=== PATIENT | female | born 1940 | race Caucasian/White ===

== ENCOUNTER 2020-03-07 17:32 | Inpatient (IN) ==
[2020-03-07] MEDS ORDERED: Naloxone 0.4 MG/ML INJ IVP PRN (22:03)
[2020-03-07] MEDS ORDERED: 0.9 % Sodium Chloride 1,000 ML IVC ONE (22:54)
[2020-03-08] MEDS: *HR* Heparin 5,000 UNIT/ML VIAL SQ SCH ×2 (05:19→18:17)
[2020-03-08 06:18] LABS: Hematocrit 34.8 % (35.3-44.9); Hemoglobin 10.7 g/dL (11.5-15.4); Mean Corpuscular HGB Conc 30.7 g/dL (31.6-35.5); Mean Corpuscular Hemoglobin 29.5 pg (28.0-33.3); Mean Corpuscular Volume 95.9 fL (83.0-100.0); Mean Platelet Volume 9.8 fL (9.4-12.4); Platelet Count 262 K/mcL (140-400); Red Blood Count 3.63 M/mcL (3.82-4.97); Red Cell Distribution Width 14.3 % (11.5-14.5); White Blood Count 6.6 K/mcL (4.3-11.1)
[2020-03-08 06:42] LABS: BUN/Creatinine Ratio 19 (6-26); Blood Urea Nitrogen 20 mg/dL (8-23); Calcium 8.9 mg/dL (8.6-10.3); Carbon Dioxide 27 mEq/L (23-29); Chloride 107 mEq/L (98-107); Glucose 105 mg/dL (70-105); Osmolality,Calculated 295 (280-300); Potassium 3.6 mEq/L (3.5-5.1); Sodium 141 mEq/L (136-145); eGFR For African Americans > 60 (> 60); eGFR For Non-African Americans 50 (> 60)
[2020-03-08] MEDS: Loratadine 10 MG TABLET PO SCH (10:00)
[2020-03-08] MEDS: Aspirin Enteric Coated 81 MG Tablet PO SCH ×2 (10:00→13:53)
[2020-03-08] MEDS: Ranolazine 500 MG TAB.ER.12H PO SCH ×3 (10:00→20:55)
[2020-03-08] MEDS ORDERED: Nitroglycerin 0.4 MG TAB.SUBL SL PRN (13:20)
[2020-03-08] MEDS: Isosorbide MONOnitrate (24 HR) 30 MG TAB.ER.24H PO SCH (18:17)
[2020-03-09] MEDS: *HR* Heparin 5,000 UNIT/ML VIAL SQ SCH ×2 (05:47→17:23)
[2020-03-09 07:13] LABS: Basophils # 0.1 K/mcL (0.0-0.2); Basophils % 0.8 %; Eosinophils # 0.2 K/mcL (0.0-0.6); Eosinophils % 2.5 %; Hematocrit 33.9 % (35.3-44.9); Hemoglobin 10.3 g/dL (11.5-15.4); Immature Granulocytes % 0.5 % (0-4); Lymphocytes # 1.8 K/mcL (0.6-4.6); Lymphocytes % 28.8 %; Mean Corpuscular HGB Conc 30.4 g/dL (31.6-35.5); Mean Corpuscular Hemoglobin 29.6 pg (28.0-33.3); Mean Corpuscular Volume 97.4 fL (83.0-100.0); Mean Platelet Volume 9.8 fL (9.4-12.4); Monocytes # 0.6 K/mcL (0.0-1.3); Monocytes % 8.6 %; Neutrophils # 3.8 K/mcL (1.6-8.9); Platelet Count 249 K/mcL (140-400); Red Blood Count 3.48 M/mcL (3.82-4.97); Red Cell Distribution Width 14.4 % (11.5-14.5); Segmented Neutrophils % 58.8 %; White Blood Count 6.4 K/mcL (4.3-11.1)
[2020-03-09 07:32] LABS: Calcium 8.6 mg/dL (8.6-10.3); Magnesium 1.7 mg/dL (1.6-2.6); Phosphorous 2.5 mg/dL (2.7-4.5); Potassium 3.6 mEq/L (3.5-5.1)
[2020-03-09] MEDS: Aspirin Enteric Coated 81 MG Tablet PO SCH (07:56)
[2020-03-09] MEDS: Loratadine 10 MG TABLET PO SCH (07:56)
[2020-03-09] MEDS: Isosorbide MONOnitrate (24 HR) 30 MG TAB.ER.24H PO SCH (07:56)
[2020-03-09] MEDS: Ranolazine 500 MG TAB.ER.12H PO SCH ×2 (07:56→19:57)
[2020-03-09] MEDS ORDERED: Perflutren Lipid Microsphere 1.3 ML in 0.9 % Sodium Chloride 8.7 ML IVP ONE (13:31)
[2020-03-10] MEDS: *HR* Heparin 5,000 UNIT/ML VIAL SQ SCH ×2 (05:19→17:08)
[2020-03-10] MEDS: Ranolazine 500 MG TAB.ER.12H PO SCH ×2 (08:02→21:09)
[2020-03-10] MEDS: Loratadine 10 MG TABLET PO SCH (08:02)
[2020-03-10] MEDS: Aspirin Enteric Coated 81 MG Tablet PO SCH (08:02)
[2020-03-11] MEDS: *HR* Heparin 5,000 UNIT/ML VIAL SQ SCH ×2 (03:28→15:13)
[2020-03-11] MEDS: Ranolazine 500 MG TAB.ER.12H PO SCH ×2 (08:10→19:49)
[2020-03-11] MEDS: Loratadine 10 MG TABLET PO SCH (08:10)
[2020-03-11] MEDS: Aspirin Enteric Coated 81 MG Tablet PO SCH (08:10)
[2020-03-11 09:02] LABS: Red Cell Distribution Width 14.6 % (11.5-14.5)
[2020-03-11 09:04] LABS: Basophils # 0.1 K/mcL (0.0-0.2); Eosinophils # 0.2 K/mcL (0.0-0.6); Eosinophils % 3.1 %; Hematocrit 37.2 % (35.3-44.9); Hemoglobin 11.5 g/dL (11.5-15.4); Immature Granulocytes % 0.4 % (0-4); Immature Platelets 2.6 % (1.1-6.1); Lymphocytes # 1.8 K/mcL (0.6-4.6); Lymphocytes % 26.7 %; Mean Corpuscular HGB Conc 30.9 g/dL (31.6-35.5); Mean Corpuscular Hemoglobin 30.1 pg (28.0-33.3); Mean Corpuscular Volume 97.4 fL (83.0-100.0); Mean Platelet Volume 9.8 fL (9.4-12.4); Monocytes # 0.6 K/mcL (0.0-1.3); Monocytes % 8.1 %; Neutrophils # 4.1 K/mcL (1.6-8.9); Platelet Count 236 K/mcL (140-400); Red Blood Count 3.82 M/mcL (3.82-4.97); Segmented Neutrophils % 60.7 %; White Blood Count 6.8 K/mcL (4.3-11.1)
[2020-03-11 10:51] LABS: BUN/Creatinine Ratio 21 (6-26); Blood Urea Nitrogen 22 mg/dL (8-23); Calcium 9.3 mg/dL (8.6-10.3); Carbon Dioxide 28 mEq/L (23-29); Chloride 107 mEq/L (98-107); Glucose 97 mg/dL (70-105); Osmolality,Calculated 295 (280-300); Potassium 3.8 mEq/L (3.5-5.1); Sodium 141 mEq/L (136-145); eGFR For African Americans > 60 (> 60); eGFR For Non-African Americans 51 (> 60)
[2020-03-11] MEDS: Metoprolol XL (24 HR) Succ 25 MG TAB.ER.24H PO SCH (11:51)
[2020-03-11] MEDS ORDERED: Regadenoson 0.4 MG/5 ML SYRINGE IVP ONE (12:13)
[2020-03-11] MEDS ORDERED: Nitroglycerin 1,000 MCG/10 ML VIAL IV ONE (13:44)
[2020-03-11] MEDS ORDERED: Heparin 1,000 UNITS/500 mL 500 ML ONE (13:44)
[2020-03-11] MEDS ORDERED: ISOVUE-370 200 ML INFUS..BTL ONE (13:44)
[2020-03-11] MEDS ORDERED: 0.9 % Sodium Chloride 2,000 ML ONE (13:44)
[2020-03-11] MEDS ORDERED: *HR* Heparin 10,000 UNIT/10 ML VIAL ONE (13:44)
[2020-03-11] MEDS ORDERED: *HR* FentaNYL (PF) 100 MCG/2 ML VIAL ONE (13:50)
[2020-03-11] MEDS ORDERED: *HR* Midazolam HCl 2 MG/2 ML VIAL ONE (13:50)
[2020-03-12] MEDS: *HR* Heparin 5,000 UNIT/ML VIAL SQ SCH (05:57)
[2020-03-12] MEDS: Metoprolol XL (24 HR) Succ 25 MG TAB.ER.24H PO SCH (09:06)
[2020-03-12] MEDS: Aspirin Enteric Coated 81 MG Tablet PO SCH (09:06)
[2020-03-12] MEDS: Ranolazine 500 MG TAB.ER.12H PO SCH (09:06)
[2020-03-12] MEDS: Loratadine 10 MG TABLET PO SCH (09:06)
[2020-03-12 10:16] VITALS: BP 131/69
== END 2020-03-12 11:09 | disposition home health service (06) | DRG 287 ==
LOC: 3BNU → SUATTDRO 19:22
PROVIDERS: ADMIT Internal Medicine; ATTEND Internal Medicine

== ENCOUNTER 2020-04-22 15:24 | Observation (INO) ==
[2020-04-22] MEDS ORDERED: Ondansetron ODT 4 MG TAB.RAPDIS SL PRN (17:24)
[2020-04-22] MEDS ORDERED: Naloxone 0.4 MG/ML INJ IVP PRN (17:24)
[2020-04-22] MEDS ORDERED: Acetaminophen 325 MG TABLET PO PRN (17:24)
[2020-04-22] MEDS ORDERED: Morphine Sulfate 2 MG/ML SYRINGE IVP PRN (17:49)
[2020-04-22] MEDS ORDERED: *HR* Promethazine 25 MG/ML VIAL IVP PRN (18:06)
[2020-04-22] MEDS ORDERED: Furosemide 40 MG/4 ML VIAL IVP ONE (18:21)
[2020-04-22] MEDS: Ranolazine 500 MG TAB.ER.12H PO SCH (19:58)
[2020-04-23] MEDS ORDERED: MethylPREDNISolone 40 MG/ML VIAL IVP ONE (00:27)
[2020-04-23] MEDS ORDERED: Morphine Sulfate 2 MG/ML SYRINGE IVP ONE (00:27)
[2020-04-23 01:34] LABS: Basophils # 0.1 K/mcL (0.0-0.2); Eosinophils # 0.2 K/mcL (0.0-0.6); Eosinophils % 2.9 %; Hematocrit 35.4 % (35.3-44.9); Hemoglobin 11.2 g/dL (11.5-15.4); Immature Granulocytes % 0.3 % (0-4); Lymphocytes # 2.1 K/mcL (0.6-4.6); Lymphocytes % 32.9 %; Mean Corpuscular HGB Conc 31.6 g/dL (31.6-35.5); Mean Corpuscular Hemoglobin 30.8 pg (28.0-33.3); Mean Corpuscular Volume 97.3 fL (83.0-100.0); Mean Platelet Volume 9.4 fL (9.4-12.4); Monocytes # 0.8 K/mcL (0.0-1.3); Monocytes % 13.5 %; Neutrophils # 3.1 K/mcL (1.6-8.9); Platelet Count 264 K/mcL (140-400); Red Blood Count 3.64 M/mcL (3.82-4.97); Red Cell Distribution Width 14.4 % (11.5-14.5); Segmented Neutrophils % 49.4 %; White Blood Count 6.2 K/mcL (4.3-11.1)
[2020-04-23 01:53] LABS: BUN/Creatinine Ratio 24 (6-26); Blood Urea Nitrogen 23 mg/dL (8-23); Calcium 9.3 mg/dL (8.6-10.3); Carbon Dioxide 30 mEq/L (23-29); Chloride 104 mEq/L (98-107); Glucose 95 mg/dL (70-105); Magnesium 1.8 mg/dL (1.6-2.6); Osmolality,Calculated 295 (280-300); Potassium 3.8 mEq/L (3.5-5.1); Sodium 141 mEq/L (136-145); eGFR For African Americans > 60 (> 60); eGFR For Non-African Americans 55 (> 60)
[2020-04-23 01:54] LABS: Chol/HDL Ratio 5.3 (0-4.9)
[2020-04-23 08:37] LABS: Estimated Average Glucose 123 mg/dl
[2020-04-23] MEDS: Ranolazine 500 MG TAB.ER.12H PO SCH ×2 (08:56→21:11)
[2020-04-23] MEDS: Aspirin 81 MG TAB.CHEW PO SCH (08:57)
[2020-04-23] MEDS: Metoprolol XL (24 HR) Succ 25 MG TAB.ER.24H PO SCH (08:57)
[2020-04-23] MEDS ORDERED: 0.9 % Sodium Chloride 250 ML IVC SCH (09:45)
[2020-04-23] MEDS ORDERED: Perflutren Lipid Microsphere 1.3 ML in 0.9 % Sodium Chloride 8.7 ML IVP PRN (10:18)
[2020-04-23] MEDS ORDERED: Isovue-370 500 ML BOTTLE IVP ONE (10:19)
[2020-04-23] MEDS ORDERED: Furosemide 40 MG/4 ML VIAL IVP ONE (10:46)
[2020-04-23] MEDS: Pantoprazole 40 MG VIAL IVP SCH (16:40)
[2020-04-24 05:26] LABS: Basophils # 0.1 K/mcL (0.0-0.2); Eosinophils # 0.2 K/mcL (0.0-0.6); Eosinophils % 2.9 %; Hematocrit 36.4 % (35.3-44.9); Hemoglobin 11.3 g/dL (11.5-15.4); Immature Granulocytes % 0.3 % (0-4); Lymphocytes # 2.2 K/mcL (0.6-4.6); Lymphocytes % 30.8 %; Mean Corpuscular Hemoglobin 30.4 pg (28.0-33.3); Mean Corpuscular Volume 97.8 fL (83.0-100.0); Mean Platelet Volume 9.5 fL (9.4-12.4); Monocytes # 0.8 K/mcL (0.0-1.3); Monocytes % 11.2 %; Neutrophils # 3.9 K/mcL (1.6-8.9); Platelet Count 277 K/mcL (140-400); Red Blood Count 3.72 M/mcL (3.82-4.97); Red Cell Distribution Width 14.6 % (11.5-14.5); Segmented Neutrophils % 53.8 %; White Blood Count 7.2 K/mcL (4.3-11.1)
[2020-04-24 05:46] LABS: Calcium 9.8 mg/dL (8.6-10.3); Potassium 3.8 mEq/L (3.5-5.1)
[2020-04-24] MEDS ORDERED: Regadenoson 0.4 MG/5 ML SYRINGE IVP ONE (07:08)
[2020-04-24] MEDS: Aspirin 81 MG TAB.CHEW PO SCH (08:55)
[2020-04-24] MEDS: Ranolazine 500 MG TAB.ER.12H PO SCH (08:55)
[2020-04-24] MEDS: Pantoprazole 40 MG VIAL IVP SCH (08:55)
[2020-04-24] MEDS: Metoprolol XL (24 HR) Succ 25 MG TAB.ER.24H PO SCH (08:55)
[2020-04-24 12:26] VITALS: BP 130/88
== END 2020-04-24 16:30 | disposition home or self-care (01) ==
LOC: 2ANU → SUATTDRO 16:20
PROVIDERS: ADMIT Internal Medicine; ATTEND Internal Medicine

== ENCOUNTER 2020-05-13 14:23 | Observation (INO) ==
[2020-05-13] MEDS ORDERED: Naloxone 0.4 MG/ML INJ IVP PRN (17:49)
[2020-05-13] MEDS ORDERED: Ondansetron 4 MG/2 ML VIAL IVP PRN (17:49)
[2020-05-13] MEDS: *HR* Heparin 5,000 UNIT/ML VIAL SQ SCH (18:50)
[2020-05-13] MEDS: Ranolazine 500 MG TAB.ER.12H PO SCH (20:38)
[2020-05-14 03:17] LABS: Hematocrit 34.7 % (35.3-44.9); Hemoglobin 10.7 g/dL (11.5-15.4); Mean Corpuscular HGB Conc 30.8 g/dL (31.6-35.5); Mean Corpuscular Hemoglobin 29.7 pg (28.0-33.3); Mean Corpuscular Volume 96.4 fL (83.0-100.0); Mean Platelet Volume 10.3 fL (9.4-12.4); Platelet Count 233 K/mcL (140-400); Red Cell Distribution Width 14.3 % (11.5-14.5); White Blood Count 6.3 K/mcL (4.3-11.1)
[2020-05-14 03:32] LABS: Alanine Aminotransferase 18 Units/L (7-52); Albumin 3.3 g/dL (3.5-5.7); Albumin/Globulin Ratio 1.3 (1.1-2.2); Alkaline Phosphatase 74 Units/L (34-104); Aspartate Amino Transferase 18 Units/L (13-39); BUN/Creatinine Ratio 29 (6-26); Bilirubin,Total 0.5 mg/dL (0.3-1.0); Blood Urea Nitrogen 28 mg/dL (8-23); Calcium 8.9 mg/dL (8.6-10.3); Carbon Dioxide 24 mEq/L (23-29); Chloride 107 mEq/L (98-107); Globulin 2.5 g/dL (2.4-3.5); Glucose 90 mg/dL (70-105); Magnesium 1.8 mg/dL (1.6-2.6); Osmolality,Calculated 295 (280-300); Potassium 4.1 mEq/L (3.5-5.1); Sodium 140 mEq/L (136-145); Total Protein 5.8 g/dL (6.4-8.9); eGFR For African Americans > 60 (> 60); eGFR For Non-African Americans 55 (> 60)
[2020-05-14] MEDS: *HR* Heparin 5,000 UNIT/ML VIAL SQ SCH (05:28)
[2020-05-14 07:45] VITALS: BP 101/63
[2020-05-14] MEDS: Ranolazine 500 MG TAB.ER.12H PO SCH (08:49)
[2020-05-14] MEDS ORDERED: Metoprolol XL (24 HR) Succ 25 MG TAB.ER.24H PO SCH (09:00)
[2020-05-14] MEDS ORDERED: Furosemide 20 MG TABLET PO SCH (09:00)
[2020-05-14] MEDS ORDERED: Aspirin Enteric Coated 81 MG Tablet PO SCH (09:00)
== END 2020-05-14 12:04 | disposition home or self-care (01) ==
LOC: 3BNU → SUATTDRO 16:10
PROVIDERS: ADMIT Family Medicine; ATTEND Nurse Practitioner Adult Health

== ENCOUNTER 2021-04-03 14:52 | Inpatient (IN) ==
[2021-04-03] MEDS ORDERED: Naloxone 0.4 MG/ML INJ IVP PRN (17:31)
[2021-04-03] MEDS ORDERED: Ondansetron 4 MG/2 ML VIAL IVP PRN (17:31)
[2021-04-03] MEDS ORDERED: Ipratropium/Albuterol Neb 3 ML IH PRN (17:34)
[2021-04-03] MEDS ORDERED: Perflutren Lipid Microsphere 1.3 ML in 0.9 % Sodium Chloride 8.7 ML IVP PRN (17:34)
[2021-04-03] MEDS ORDERED: Metoprolol XL (24 HR) Succ 25 MG TAB.ER.24H PO SCH (21:00)
[2021-04-03] MEDS: Ranolazine 500 MG TAB.ER.12H PO SCH (22:27)
[2021-04-03] MEDS: Furosemide 40 MG/4 ML VIAL IVP SCH (22:28)
[2021-04-04] MEDS: *HR* Heparin 5,000 UNIT/ML VIAL SQ SCH ×2 (06:13→18:09)
[2021-04-04 06:48] LABS: Hematocrit 37.6 % (35.3-44.9); Hemoglobin 11.8 g/dL (11.5-15.4); Mean Corpuscular HGB Conc 31.4 g/dL (31.6-35.5); Mean Corpuscular Hemoglobin 31.3 pg (28.0-33.3); Mean Corpuscular Volume 99.7 fL (83.0-100.0); Mean Platelet Volume 9.6 fL (9.4-12.4); Platelet Count 253 K/mcL (140-400); Red Blood Count 3.77 M/mcL (3.82-4.97); Red Cell Distribution Width 13.9 % (11.5-14.5); White Blood Count 6.6 K/mcL (4.3-11.1)
[2021-04-04 07:05] LABS: Calcium 9.1 mg/dL (8.6-10.3); Magnesium 1.8 mg/dL (1.6-2.6); Potassium 3.6 mEq/L (3.5-5.1)
[2021-04-04] MEDS: Ranolazine 500 MG TAB.ER.12H PO SCH ×2 (08:23→21:34)
[2021-04-04] MEDS: Metoprolol XL (24 HR) Succ 25 MG TAB.ER.24H PO SCH ×2 (08:24→21:35)
[2021-04-04] MEDS: Aspirin Enteric Coated 81 MG Tablet PO SCH (08:24)
[2021-04-04] MEDS: Furosemide 40 MG/4 ML VIAL IVP SCH ×2 (08:27→21:34)
[2021-04-04] MEDS ORDERED: Nitroglycerin 0.4 MG TAB.SUBL SL PRN (13:30)
[2021-04-05] MEDS ORDERED: Regadenoson 0.4 MG/5 ML SYRINGE IVP ONE (06:15)
[2021-04-05] MEDS: *HR* Heparin 5,000 UNIT/ML VIAL SQ SCH ×2 (06:29→17:04)
[2021-04-05] MEDS: Metoprolol XL (24 HR) Succ 25 MG TAB.ER.24H PO SCH ×2 (09:37→20:28)
[2021-04-05] MEDS: Ranolazine 500 MG TAB.ER.12H PO SCH ×2 (09:37→20:28)
[2021-04-05] MEDS: Aspirin Enteric Coated 81 MG Tablet PO SCH (09:37)
[2021-04-05] MEDS: Furosemide 40 MG/4 ML VIAL IVP SCH (09:38)
[2021-04-05 11:39] LABS: Calcium 9.7 mg/dL (8.6-10.3); Magnesium 1.8 mg/dL (1.6-2.6); Phosphorous 3.9 mg/dL (2.7-4.5); Potassium 3.7 mEq/L (3.5-5.1)
[2021-04-05] MEDS ORDERED: Furosemide 20 MG/2 ML VIAL IVP SCH (21:00)
[2021-04-06 02:17] LABS: Calcium 9.3 mg/dL (8.6-10.3); Magnesium 1.8 mg/dL (1.6-2.6); Potassium 3.4 mEq/L (3.5-5.1)
[2021-04-06] MEDS: *HR* Heparin 5,000 UNIT/ML VIAL SQ SCH (05:23)
[2021-04-06] MEDS: Metoprolol XL (24 HR) Succ 25 MG TAB.ER.24H PO SCH (08:23)
[2021-04-06] MEDS: Aspirin Enteric Coated 81 MG Tablet PO SCH (08:23)
[2021-04-06] MEDS: Ranolazine 500 MG TAB.ER.12H PO SCH (08:23)
[2021-04-06 11:25] VITALS: BP 153/81; PULSE 67; TEMP 97.5; O2SAT 90
== END 2021-04-06 11:46 | disposition home or self-care (01) | DRG 291 ==
LOC: CDU → SUATTDRO 16:34 → 2ANU 04-05 17:52
PROVIDERS: ADMIT Internal Medicine; ATTEND Internal Medicine

== ENCOUNTER 2021-12-14 18:57 | Observation (INO) ==
[2021-12-14] MEDS ORDERED: Acetaminophen 325 MG TABLET PO PRN (22:31)
[2021-12-14] MEDS ORDERED: Ondansetron ODT 4 MG TAB.RAPDIS SL PRN (22:31)
[2021-12-14] MEDS ORDERED: *HR* OxyCODONE Immed Rel 5 MG TABLET PO PRN (22:31)
[2021-12-14] MEDS ORDERED: *HR* HYDROcodone/Acet 5/325 mg TABLET PO PRN (22:31)
[2021-12-14] MEDS ORDERED: Melatonin 3 MG TABLET PO PRN (22:31)
[2021-12-14] MEDS ORDERED: Naloxone 0.4 MG/ML INJ IVP PRN (22:31)
[2021-12-14] MEDS ORDERED: D5% in Water 1,000 ML IVC PRN (22:35)
[2021-12-14] MEDS ORDERED: Dextrose 4 GM Chewable Tablets PO PRN ×2 (22:35)
[2021-12-14] MEDS ORDERED: *HR* Dextrose 50 % in Water (Syg) 50 ML SYRINGE IVP PRN (22:35)
[2021-12-14] MEDS ORDERED: Perflutren Lipid Microsphere 1.3 ML in 0.9 % Sodium Chloride 8.7 ML IVP PRN (22:36)
[2021-12-15] MEDS ORDERED: Nitroglycerin 0.4 MG TAB.SUBL SL PRN (00:16)
[2021-12-15 00:27] LABS: Hemoglobin 11.3 g/dL (11.5-15.4); Mean Corpuscular HGB Conc 31.4 g/dL (31.6-35.5); Mean Corpuscular Hemoglobin 31.4 pg (28.0-33.3); Mean Platelet Volume 9.7 fL (9.4-12.4); Platelet Count 223 K/mcL (140-400); Red Cell Distribution Width 13.5 % (11.5-14.5); White Blood Count 6.2 K/mcL (4.3-11.1)
[2021-12-15 00:47] LABS: Calcium 9.3 mg/dL (8.6-10.3); Chol/HDL Ratio 3.2 (0-4.9); Magnesium 1.8 mg/dL (1.6-2.6); Phosphorous 3.1 mg/dL (2.7-4.5); Potassium 3.7 mEq/L (3.5-5.1)
[2021-12-15 02:24] LABS: Estimated Average Glucose 117 mg/dl; Hemoglobin A1C 5.7 %
[2021-12-15] MEDS ORDERED: Regadenoson 0.4 MG/5 ML SYRINGE IVP ONE (07:05)
[2021-12-15] MEDS: Aspirin 81 MG TAB.CHEW PO SCH (09:38)
[2021-12-15] MEDS: Ranolazine 500 MG TAB.ER.12H PO SCH ×2 (09:50→19:27)
[2021-12-15] MEDS ORDERED: Furosemide 20 MG TABLET PO SCH (10:00)
[2021-12-15] MEDS ORDERED: Ipratropium/Albuterol Neb 3 ML IH PRN (10:25)
[2021-12-15] MEDS ORDERED: Heparin 1,000 UNITS/500 mL 500 ML ONE (16:31)
[2021-12-15] MEDS ORDERED: *HR* FentaNYL (PF) 100 MCG/2 ML VIAL ONE (16:31)
[2021-12-15] MEDS ORDERED: *HR* Heparin 10,000 UNIT/10 ML VIAL ONE ×2 (16:31→16:49)
[2021-12-15] MEDS ORDERED: 0.9 % Sodium Chloride 1,000 ML ONE (16:31)
[2021-12-15] MEDS ORDERED: *HR* Midazolam HCl 2 MG/2 ML VIAL ONE (16:31)
[2021-12-15] MEDS ORDERED: ISOVUE-370 200 ML INFUS..BTL ONE (16:31)
[2021-12-15] MEDS ORDERED: Nitroglycerin 1,000 MCG/5 ML VIAL IV ONE (16:32)
[2021-12-15] MEDS: *HR* Heparin 5,000 UNIT/ML VIAL SQ SCH (16:58)
[2021-12-16] MEDS: *HR* Heparin 5,000 UNIT/ML VIAL SQ SCH (05:55)
[2021-12-16 06:39] VITALS: TEMP 98.1
[2021-12-16] MEDS: Aspirin 81 MG TAB.CHEW PO SCH (07:57)
[2021-12-16] MEDS: Ranolazine 500 MG TAB.ER.12H PO SCH (07:57)
[2021-12-16 08:23] LABS: Calcium 9.1 mg/dL (8.6-10.3); Magnesium 1.8 mg/dL (1.6-2.6); Potassium 3.9 mEq/L (3.5-5.1)
[2021-12-16 10:53] VITALS: BP 116/77; PULSE 58; O2SAT 96
== END 2021-12-16 13:25 | disposition home or self-care (01) ==
LOC: 3BNU → SUATTDRO 22:02
PROVIDERS: ADMIT Internal Medicine; ATTEND Internal Medicine